=== PATIENT | male | born 1985 | race Caucasian/White ===

== ENCOUNTER 2024-07-05 13:03 | Emergency (ER) | payer SELFPAY ==
[~2024-07-05] VITALS: Ht 144.8 cm; Wt 74.8 kg
[2024-07-05 13:32] VITALS: BP_SYST 158; PULSE 74; RESP 18; TEMP 98.4; O2SAT 98
[2024-07-05 15:33] VITALS: BP 122/79; PULSE 69; RESP 16; TEMP 98.4; O2SAT 95
== END 2024-07-05 15:35 | disposition home or self-care (01) ==
LOC: MED 13:03
DX: S50.01XA Contusion of right elbow, initial encounter (principal); R03.0 Elevated blood-pressure reading, without diagnosis of hypertension; W18.39XA Other fall on same level, initial encounter; Y93.89 Activity, other specified; Y92.89 Other specified places as the place of occurrence of the external cause; Y99.8 Other external cause status
CPT/HCPCS: 73080; 99283; Q0092